=== PATIENT | male | born 1985 | race Caucasian/White ===

== ENCOUNTER 2023-12-11 23:59 | Emergency (ER) | payer SELFPAY ==
[2023-12-12 00:08] VITALS: RESP 18; BMI 25.7
[2023-12-12 01:16] LABS: BASO % 0.4 % (0-2.0); EOS % 0.5 % (0-4.5); HEMATOCRIT 39.5 % (35.4-49); HEMOGLOBIN 13.5 GM/dL (11.7-16.9); MCH 30.4 pg (25.7-33.7); MCHC 34.1 g/dl (32.0-35.9); MEAN CELL VOLUME 89.3 fl (80-96); MEAN PLT VOLUME 7.6 fl (7.5-11.1); MONO % 7.2 % (3.8-10.2); NEUT % 80.9 % (42.8-82.8); PLATELET COUNT 308 10^3/uL (134-434); RBC 4.42 M/mm3 (4.00-5.60); WHITE BLOOD COUNT 13.2 K/mm3 (4.0-10.0)
[2023-12-12] MEDS: LACTATED RINGERS SOLUTION 1000 ML INFUS.BAG IV ONE (01:16)
[2023-12-12] MEDS ORDERED: ACETAMINOPHEN INJECTION 100 ML IVPB ONE (01:26)
[2023-12-12] MEDS ORDERED: ONDANSETRON 4 MG/2 ML VIAL ONE (01:28)
[2023-12-12] MEDS: ONDANSETRON 4 MG/2 ML VIAL IVPUSH ONE (01:52)
[2023-12-12] MEDS: ACETAMINOPHEN 1000 MG/100 ML BAG IVPB ONE (01:52)
[2023-12-12 02:05] LABS: ALBUMIN 3.9 g/dl (3.4-5.0); ALK PHOS 72 U/L (45-117); ANION GAP 9 mmol/L (4-13); BILIRUBIN,TOTAL 0.6 mg/dL (0.2-1); BLOOD UREA NITROGEN 16.6 mg/dL (7-18); CALCIUM 9.3 mg/dL (8.5-10.1); CHLORIDE 108 mmol/L (98-107); CO2 25 mmol/L (21-32); CREATININE 1.3 mg/dL (0.55-1.3); GLUCOSE,RANDOM 123 mg/dL (74-106); MAGNESIUM 2.1 mg/dL (1.8-2.4); POTASSIUM 3.8 mmol/L (3.5-5.1); SGOT/AST 25 U/L (15-37); SGPT/ALT 43 U/L (13-61); SODIUM 142 mmol/L (136-145); TOT PROT 7.1 g/dl (6.4-8.2)
[2023-12-12 02:06] VITALS: BP 115/86; PULSE 75; TEMP 98.8
[2023-12-12 02:43] LABS: EPI CELLS 6 /uL (0-25.1); HYALINE CASTS 1 /uL (0-3.1); PH,URINE 6.5 (5.0-8.0); URINE APPEARANCE CLEAR; URINE BACTERIA 10 /uL (0-1359); URINE BILIRUBIN NEGATIVE (NEGATIVE); URINE COLOR YELLOW; URINE GLUCOSE (UA) NEGATIVE (NEGATIVE); URINE KETONE NEGATIVE (NEGATIVE); URINE LEUK ESTERASE NEGATIVE (NEGATIVE); URINE NITRITE NEGATIVE (NEGATIVE); URINE PROTEIN TRACE (NEGATIVE); URINE RBC 2238 /uL (0-23.9); URINE UROBILINOGEN 0.2 mg/dL (0.2-1.0); URINE WBC 22 /uL (0-25.8)
[2023-12-12] MEDS ORDERED: morphine SULFATE 4 MG/ML VIAL ONE (02:55)
[2023-12-12] MEDS: morphine CARPU-JECT 4 MG/1 ML DISP.SYRIN IVPUSH ONE (03:00)
[2023-12-12 03:47] LABS: SYPHILIS W/ RPR CONF NON-REACTIVE (NONREACTIVE)
[2023-12-12 04:15] LABS: HIV INTERPRETATION NEGATIVE (NEGATIVE)
[2023-12-12] MEDS ORDERED: TAMSULOSIN HCL 0.4 MG CAP ONE (04:48)
[2023-12-12] MEDS ORDERED: KETOROLAC TROMETHAMINE 30 MG/1 ML VIAL ONE (04:48)
[2023-12-12] MEDS: TAMSULOSIN HCL 0.4 MG CAP PO ONE (04:53)
[2023-12-12] MEDS: KETOROLAC TROMETHAMINE 30 MG/1 ML VIAL IVPUSH ONE (04:54)
== END 2023-12-12 05:18 | disposition home or self-care (01) ==
LOC: JER 23:59
PROC: 3E033NZ Introduction of Analgesics, Hypnotics, Sedatives into Peripheral Vein, Percutaneous Approach (ICD-10-PCS; principal; 2023-12-12)
PROC: 3E030GC Introduction of Other Therapeutic Substance into Peripheral Vein, Open Approach (ICD-10-PCS; 2023-12-12)
PROC: 3E030GC Introduction of Other Therapeutic Substance into Peripheral Vein, Open Approach (ICD-10-PCS; 2023-12-12)
PROC: 3E030GC Introduction of Other Therapeutic Substance into Peripheral Vein, Open Approach (ICD-10-PCS; 2023-12-12)
DX: R11.2 Nausea with vomiting, unspecified (principal); R10.31 Right lower quadrant pain; R30.0 Dysuria; N13.2 Hydronephrosis with renal and ureteral calculous obstruction
CPT/HCPCS: 36415; 74176-TC; 80053; 81003; 82550; 82553; 83690; 83735; 85025; 86780; 87086; 87389; 87491; 87522; 87591; 87661; 93005; 93010; 99285-25; J0131

== ENCOUNTER 2024-01-04 19:23 | Emergency (ER) | payer SELFPAY ==
[2024-01-04 19:27] VITALS: PULSE 88; RESP 20; TEMP 97.7; BMI 25.1
[2024-01-04] MEDS ORDERED: morphine SULFATE 4 MG/ML VIAL ONE (20:21)
[2024-01-04] MEDS ORDERED: ONDANSETRON 4 MG/2 ML VIAL ONE (20:21)
[2024-01-04] MEDS: morphine CARPU-JECT 4 MG/1 ML DISP.SYRIN IVPUSH ONE (20:47)
[2024-01-04] MEDS: ONDANSETRON 4 MG/2 ML VIAL IVPUSH ONE (20:49)
[2024-01-04 20:50] LABS: HEMATOCRIT 41.4 % (35.4-49); MCH 30.6 pg (25.7-33.7); MCHC 33.9 g/dl (32.0-35.9); MEAN CELL VOLUME 90.2 fl (80-96); MEAN PLT VOLUME 8.1 fl (7.5-11.1); PLATELET COUNT 278 10^3/uL (134-434); RBC 4.59 M/mm3 (4.00-5.60); RDW 12.7 % (11.9-15.9); WHITE BLOOD COUNT 20.6 K/mm3 (4.0-10.0)
[2024-01-04 21:08] LABS: POTASSIUM 3.8 mmol/L (3.5-5.1)
[2024-01-04 21:10] LABS: ALBUMIN 4.2 g/dl (3.4-5.0); CALCIUM 9.4 mg/dL (8.5-10.1)
[2024-01-04 21:13] LABS: CREATININE 1.3 mg/dL (0.55-1.3)
[2024-01-04 21:15] LABS: BILIRUBIN,TOTAL 0.6 mg/dL (0.2-1); TOT PROT 7.7 g/dl (6.4-8.2)
[2024-01-04 21:21] VITALS: BP 153/100
[2024-01-04 21:36] LABS: OVALOCYTE 1+
[2024-01-04 21:38] LABS: PLATELET ESTIMATE ADEQUATE
[2024-01-04] MEDS: SODIUM CHLORIDE 0.9% 500 ML INFUS.BAG IV ONE (23:27)
[2024-01-05 01:03] LABS: URINE APPEARANCE CLEAR; URINE BILIRUBIN NEGATIVE (NEGATIVE); URINE COLOR YELLOW; URINE GLUCOSE (UA) NEGATIVE (NEGATIVE); URINE KETONE NEGATIVE (NEGATIVE); URINE LEUK ESTERASE NEGATIVE (NEGATIVE); URINE NITRITE NEGATIVE (NEGATIVE); URINE PROTEIN NEGATIVE (NEGATIVE); URINE UROBILINOGEN 0.2 mg/dL (0.2-1.0)
== END 2024-01-05 02:26 | disposition home or self-care (01) ==
LOC: JER 19:23
PROC: 3E033NZ Introduction of Analgesics, Hypnotics, Sedatives into Peripheral Vein, Percutaneous Approach (ICD-10-PCS; principal; 2024-01-04)
PROC: 3E033GC Introduction of Other Therapeutic Substance into Peripheral Vein, Percutaneous Approach (ICD-10-PCS; 2024-01-04)
DX: N13.0 Hydronephrosis with ureteropelvic junction obstruction (principal)
CPT/HCPCS: 36415; 74176-TC; 80053; 81003; 85025; 87086; 99284-25